=== PATIENT | male | born 1955 | race Caucasian/White ===

== ENCOUNTER 2022-03-24 10:12 | Observation (INO) | payer MEDICARE, SELFPAY ==
[2022-03-24 10:12] VITALS: BP 151/96; PULSE 72; RESP 16; TEMP 36.1; O2SAT 96; BMI 27.8
--- NOTE | 2022-03-24 10:27 | NURSING ---
CALLED [facility]KEN[facility] ROGERS, TALKED TO YANNA. SHE WILL PRINT OUT RESULTS OF VISIT FROM [facility] AND FAX THEM TO OUR ER
--- NOTE | 2022-03-24 10:31 | CT_ITS ---
HISTORY: pain, jaundice. TECHNIQUE: Helically acquired images were obtained of the abdomen and pelvis after the intravenous administration of 100mL Isovue-370. A radiation dose optimization technique was used for this scan. 423 images. COMPARISON: None. FINDINGS: LOWER CHEST: Lung bases clear. BOWEL: Mild hiatal hernia. Bowel nondilated. Appendix not visualized. Colonic diverticulosis without focal inflammatory change observed. PERITONEUM: No significant ascites. LIVER/SPLEEN/PANCREAS: No enhancing mass. Nonenlarged. GALLBLADDER/BILIARY TREE: Multiple gallstones in a distended gallbladder. KIDNEYS: No hydronephrosis. Septated 2.2 cm right upper and simple 1 cm lower pole cysts. ADRENAL GLANDS: No nodules. VESSELS: No abdominal aortic aneurysm. Mild atherosclerosis. PELVIC ORGANS: Prostate calcifications seen. ABDOMINAL WALL: Mild scrotal hydroceles. Fat-containing right inguinal hernia. BONES: Mild degenerative changes with chronic mild compression fractures of T12, L1, and L2. CT/Abdomen/Pelvis W IV Cont ONLY IMPRESSION: Cholelithiasis with gallbladder distention. Small right renal cysts. Mild hiatal hernia. Mild scrotal hydroceles. Electronically Signed: Anika Goodwin MD at 11:43 EST ,
--- NOTE | 2022-03-24 10:32 | EX.ED.DYSGE1 ---
HPI History of Present Illness Chief Complaint: General Illness Informant: patient and spouse/S.O. Narrative Narrative: Patient presents with nausea vomiting dehydration jaundiced and some abdominal discomfort. Patient states he has been having some nausea and vomiting for almost 2 weeks. He had a little bit of nonspecific nonlocalized abdominal discomfort. He was seen at another hospital on Friday. They did blood work and he recalls his bilirubin was 3.8. Because he feels slightly lightheaded when he gets up quickly, they did a CT of his head that showed no acute process. It sounds like there was no imaging of the abdomen done. He was feeling better after IV fluids and meds. But over the last 2 or so days he has not been able to control nausea vomiting again. He is not really eating at all. He is still making urine. He does state that his stools were light-colored. No blood. He tried to get a popsicle and this morning. It stayed down for about an hour before he threw up that liquid. His biggest complaint is that he feels very dehydrated. He does have an appointment with Dr. Smith tomorrow at 3 in the afternoon. Patient does not drink alcohol at all. He only occasionally takes Tylenol. He is overall quite healthy. He had what sounds like inguinal hernia repair years ago but no other abdominal surgery. Nothing is really making his symptoms better or worse. Meds helped a little bit but are no longer helping. [facility] Medical History GERD (gastroesophageal reflux disease) Home Medications omeprazole 40 mg capsule,delayed release mg 03/24/22 [History Last Taken Unknown] Allergy/AdvReac Type Severity Reaction Status Date / Time No Known Allergies Allergy Verified 03/24/22 10:15 Surgical History H/O cardiac radiofrequency ablation Social History Smoking Status: Never smoker ROS ROS ED Constitutional Constitutional ED: Denies chills or fever(s) Eyes Eyes: Denies change in vision ENT ENT ED: Denies rhinorrhea or sore throat Cardiovascular Cardiovascular: Denies chest pain or palpitations Respiratory/Chest Respiratory/Chest: Denies cough or dyspnea Gastrointestinal Gastrointestinal: Reports abdominal pain, nausea, vomiting and other Details: Patient states he has mild abdominal discomfort. But he states is not really pain at all. It is a constant feeling as though he is going to vomit. He cannot localize this to any one area. ; Denies constipation, diarrhea or melena Genitourinary Genitourinary ED: Reports other Details: Patient states his urine is still relatively normal. No noted darkening or foaming. ; Denies urinary frequency Musculoskeletal Musculoskeletal: Denies myalgias Integumentary Denies rash Neurologic Neurologic: Reports other Details: Patient states he feels mildly lightheaded if he gets up quickly. Its not true vertigo. It does not continue. He thinks this is likely related to not getting fluids in. It had resolved after he got IV fluids. ; Denies headache(s), paresthesias or weakness Endocrine Endocrinology: Denies polydipsia or polyuria Hematologic/Lymphatic Hematologic/Lymphatic: Denies easy bleeding or easy bruising Allergic/Immunologic Allergic/Immunologic ED: Denies urticaria EXAM Physical Exam Const Vital Signs: 03/24/22 10:12 03/24/22 10:43 03/24/22 13:07 Temperature 97.0 F L Temperature Source Temporal Pulse Rate 72 Respiratory Rate 16 18 Respiratory Effort Normal Non-Labored Blood Pressure 151/96 H Blood Pressure Mean 114 Pulse Ox 96 99 Oxygen Delivery Method Room Air Room Air 03/24/22 15:00 03/24/22 16:21 Temperature 99 F Temperature Source Temporal Pulse Rate 84 75 Respiratory Rate 18 18 Respiratory Effort Blood Pressure 139/85 H Blood Pressure Mean 103 Pulse Ox 96 99 Oxygen Delivery Method Room Air Room Air Positive well nourished and well developed General Appearance ED: well developed and NAD HEENT Reports dry mucous membranes Mouth ED: Yes dry mucous membranes Mouth: dry mucous membranes Eyes General Eye ED: Yes scleral icterus Neck supple and no JVD Chest Wall inspection of chest normal Resp normal respiratory effort and clear to auscultation bilaterally Effort and Inspection: Negative for pain with movement Cardio regular rate and regular rhythm GI normal to inspection, nondistended, normoactive bowel sounds GI Narrative: Bowel sounds are normal. Abdomen does not look distal and it. He does feel just a hint of discomfort with palpation of the right upper quadrant. But its not notably tender. There is certainly no rebound or guarding. Kuo sign is negative. Back/Spine no CVA tenderness Extremity normal to inspection General Extremety ED: Negative for edema or tenderness General Extremity: Negative for edema Psych mental status grossly normal Skin no rashes or lesions noted Skin Narrative: There is some icteric changes to his conjunctive a but I do not see generalized jaundiced. MDM MDM MDM Narrative Medical decision making narrative: CT and ultrasound are not showing signs of acute cholecystitis although there is cholelithiasis. His white count is normal. Hemoglobin is still high. This may be partially from dehydration and may be chronic. INR is normal. Electrolytes overall look normal. LFTs look good except for the high bilirubin at 4.2. This is mostly indirect bilirubin when we checked this. But he has no bruising. There is no sign of hemolysis. Urine is negative. LDH is normal but at high limit of normal. Reticulocyte count pending. Patient was still nauseated after Zofran. We have also given him IV fluids. He has had some dry heaves. We gave him some Phenergan. My concern is that this patient has lost about 15 or 16 pounds. He is still having nausea and vomiting despite good medication at home. He is not showing acute kidney injury now but he also got IV fluids just few days ago and today. We discussed options with him and he also discussed the case with the hospitalist. He will be brought in under observation status. Lab Data Attestation: I reviewed the patient's lab results. Labs: Laboratory Results - last 24 hr 03/24/22 03/24/22 03/24/22 10:40 10:40 10:40 WBC 8.9 RBC 6.36 H Hgb 18.8 H* Hct 52.7 MCV 82.9 MCH 29.6 MCHC 35.7 RDW Std Deviation 37.3 RDW Coeff of Inocente 12.3 Plt Count 216 MPV 11.6 Immature Gran % (Auto) 0.400 Neut % (Auto) 80.0 H Lymph % (Auto) 11.3 L [place] % (Auto) 7.4 Eos % (Auto) 0.7 Baso % (Auto) 0.2 Absolute Neuts (auto) 7.1 Absolute Lymphs (auto) 1.01 Nucleated RBC % 0 Diff Path Review May foll Retic Count Immature Retic Fraction Retic Hgb Equivalent PT 12.8 INR 1.0 Sodium 137 Potassium 3.7 Chloride 103 Carbon Dioxide 27.0 Anion Gap 7 BUN 11 Creatinine 0.94 Estim Creat Clear Calc 69.34 Est GFR (MDRD) Af Amer 102 Est GFR (MDRD) Non-Af 84 BUN/Creatinine Ratio 11.7 Glucose 114 H Calcium 9.6 Total Bilirubin 4.20 H Direct Bilirubin Indirect Bilirubin AST 16 ALT 26 Alkaline Phosphatase 93 Lactate Dehydrogenase Total Protein 7.5 Albumin 4.1 Globulin 3.4 Albumin/Globulin Ratio 1.2 Lipase 158 Urine Color Urine Clarity Urine pH Ur Specific [place] Urine Protein Urine Glucose (UA) Urine Ketones Urine Occult Blood Urine Nitrite Urine Bilirubin Urine Urobilinogen Ur Leukocyte Esterase Urine RBC Urine WBC Ur Squamous Epith Cells Urine Bacteria Urine Mucus 03/24/22 03/24/22 03/24/22 10:40 10:40 11:45 WBC RBC Hgb Hct MCV MCH MCHC RDW Std Deviation RDW Coeff of Inocente Plt Count MPV Immature Gran % (Auto) Neut % (Auto) Lymph % (Auto) [place] % (Auto) Eos % (Auto) Baso % (Auto) Absolute Neuts (auto) Absolute Lymphs (auto) Nucleated RBC % Diff Path Review Retic Count 0.90 Immature Retic Fraction 5.00 Retic Hgb Equivalent 34.3 PT INR Sodium Potassium Chloride Carbon Dioxide Anion Gap BUN Creatinine Estim Creat Clear Calc Est GFR (MDRD) Af Amer Est GFR (MDRD) Non-Af BUN/Creatinine Ratio Glucose Calcium Total Bilirubin 4.10 H Direct Bilirubin 0.53 H Indirect Bilirubin 3.60 H AST ALT Alkaline Phosphatase Lactate Dehydrogenase 229 Total Protein Albumin Globulin Albumin/Globulin Ratio Lipase Urine Color Straw Urine Clarity Clear Urine pH 8.0 Ur Specific [place] 1.010 Urine Protein Negative Urine Glucose (UA) Normal Urine Ketones Negative Urine Occult Blood Negative Urine Nitrite Negative Urine Bilirubin Negative Urine Urobilinogen Normal Ur Leukocyte Esterase Negative Urine RBC 0 SEEN Urine WBC 0 SEEN Ur Squamous Epith Cells 0 SEEN Urine Bacteria 0 SEEN Urine Mucus 0 SEEN Radiography Diagnostic Testing: Clinical Impression(s) from Imaging Studies Abdomen/Pelvis CT 03/24/22 10:31 IMPRESSION: Cholelithiasis with gallbladder distention. Small right renal cysts. Mild hiatal hernia. Mild scrotal hydroceles. Electronically Signed: Anika Goodwin MD at 11:43 EST Reading Location ID and State: [facility] / [place] Tel , Service support , Gallbladder Ultrasound 03/24/22 12:02 IMPRESSION: Cholelithiasis. Electronically Signed: Lázaro Bullock MD at 13:52 EST , CT shows some cholelithiasis but no acute process. I did ultrasound the gallbladder which also shows cholelithiasis but no acute process or inflammation. Discharge Plan Triage Chief Complaint: General Illness ED Provider: Maximino Mercer Dx/Rx/DC Orders Prescriptions: No Action omeprazole 40 mg Capsule,Delayed Release(Dr/Ec) Rx Instructions: EVERY OTHER DAY Primary Care Provider: Lencho Nicholas Referrals: Jorgito Cleary MD [Non-Staff] - Disposition Disposition: Acute Care [facility]
[2022-03-24] MEDS: Ondansetron 4 MG/2 ML Vial IV (10:47)
[2022-03-24] MEDS: 0.9% Normal Saline 1,000 ML 1000 ML IV (10:47)
[2022-03-24 10:48] LABS: Absolute Lymphocyte Count 1.01 X10^3/uL (0.83-4.51); Absolute Neutrophil Count 7.1 X10^3/uL (2.0-7.7); Basophil# 0.02 X10^3/uL; Basophil% 0.2 % (0-1); Eosinophil# 0.06 X10^3/uL; Eosinophils% 0.7 % (0-5); Hematocrit 52.7 % (40-54); Hemoglobin 18.8 g/dL (13.0-16.5); Lymphocyte # 1.01 X10^3/ul (0.83-4.51); Lymphocyte % 11.3 % (19-41); Mean Corp Hgb Conc 35.7 g/dL (32-36); Mean Corpuscular Hgb 29.6 pg (27.0-32.0); Mean Corpuscular Volume 82.9 fL (80-94); Mean Platelet Vol. 11.6 fl (6.2-12.0); Monocyte# 0.66 X10^3/uL; Monocyte% 7.4 % (0-10); NRBC Flagged by Analyzer 0 % (0-5); Neutrophil # 7.11 X10^3/uL (2.7-7.7); Platelet Count 216 K/mm3 (150-450); RBC Distribution Width CV 12.3 % (11.6-14.6); RBC Distribution Width SD 37.3 fl (35.1-43.9); Red Blood Count 6.36 M/mm3 (4.6-6.2); White Blood Count 8.9 K/mm3 (4.4-11.0)
[2022-03-24 10:57] LABS: Prothrombin Time (Protime)PT. 12.8 SECONDS (11.7-14.9)
[2022-03-24 11:05] LABS: ALB/GLOB Ratio 1.2 RATIO (0.9-2.4); AST(SGOT) 16 U/L (15-37); Alanine Aminotransfer ALT/SGPT 26 U/L (16-61); Albumin, Serum 4.1 g/dL (3.2-5.0); Alkaline Phosphatase 93 U/L (45-117); Anion Gap 7 (5-15); BUN 11 mg/dL (7-18); BUN/Creat Ratio 11.7 RATIO (10-20); Calcium,Total 9.6 mg/dL (8.5-10.1); Chloride 103 mmol/L (98-107); Creatinine, Serum 0.94 mg/dL (0.70-1.30); EST Glomerular Filtration Rate 84 mL/min (>60); Est Glom Filt Rate - Afr Amer 102 mL/min (>60); Estimated Creatinine Clearance 69.34 ml/min; Globulin 3.4 g/dL (2.2-4.2); Glucose 114 mg/dL (74-106); Lipase 158 U/L (73-393); Potassium 3.7 mmol/L (3.5-5.1); Protein, Total 7.5 g/dL (6.4-8.2); Sodium Level 137 mmol/L (136-145)
[2022-03-24 11:52] LABS: Bacteria 0 SEEN /hpf (None Seen); Mucous, Urine 0 SEEN /hpf (<or=2+); Red Blood Cells-Urine 0 SEEN /hpf (0-5); Squamous Epithelial Cells - UA 0 SEEN /hpf (0-5); White Blood Cells 0 SEEN /hpf (0-5)
[2022-03-24 11:54] LABS: Color, Urine Straw (Yellow); Glucose, Dipstick Normal (Normal); Ketone-Dipstick Negative (Negative); Leukocyte Esterase-Dipstick Negative /ul (Negative); Nitrite-Dipstick Negative (Negative); Occult Blood-Urine Negative /ul (Negative); Protein-Dipstick Negative (Negative); Urine Bilirubin Dipstick Negative (Negative); Urine Clarity Clear (Clear); Urine Urobilinogen Normal (Normal)
--- NOTE | 2022-03-24 12:02 | US_ITS ---
EXAM: US ABDOMEN LIMITED, RIGHT UPPER QUADRANT CLINICAL INDICATION: PAIN TECHNIQUE: Real-time ultrasound of the right upper quadrant with image documentation. This report was created using [employer] report generation technology. COMPARISON: None. FINDINGS: LIVER: Normal. There is normal echotexture. No focal hepatic lesion. No intrahepatic biliary ductal dilation. GALLBLADDER: Small stones noted along the neck of the gallbladder. No gallbladder wall thickening is demonstrated. No pericholecystic fluid. Negative sonographic Kuo''s sign. COMMON BILE DUCT: Unremarkable as visualized. The proximal common bile duct is within normal limits for the patient''s age. PANCREAS: Pancreas is obscured by overlying bowel gas. RIGHT KIDNEY: Normal. There is no hydronephrosis. No shadowing calculus. No focal lesion or perinephric collection is demonstrated. US/Gallbladder IMPRESSION: Cholelithiasis. Electronically Signed: Lázaro Bullock MD at 13:52 EST ,
[2022-03-24 13:07] VITALS: RESP 18; O2SAT 99
[2022-03-24 13:24] LABS: Platelet Count 197 K/mm3 (150-450); RET-HE 34.3 pg (30-35)
[2022-03-24 13:51] LABS: Bilirubin, Direct 0.53 mg/dL (0.00-0.30); LDH 229 U/L (87-241)
[2022-03-24] MEDS: proMETHazine 25 MG/ML Syringe 12.5 MG IM (14:08)
[2022-03-24 15:00] VITALS: PULSE 84; RESP 18; O2SAT 96
--- NOTE | 2022-03-24 16:04 | HP.PCM.HOS_ITS ---
HPI - General General Chief Complaint: N/V HPI Narrative TYREL HESS, is a 67 M who presents nausea and vomiting. Has been ongoing for a few weeks and occurs when he eats but is not consistent. Is able to take liquids. During this time he is lost over 10 pounds. Additionally he has been having a headache with that. States that headache is better after he vomits. Was seen at [facility] where he had a head CT that was apparently negative. Was sent home. Presents here just as he is not feeling any better. He was noted to have total bilirubin of 4.1 and direct bilirubin of 0.53 and indirect 3.6. Patient had a history of that couple years ago and was told that he had sludge in his gallbladder at that time. Patient has not noticed any jaundice. Patient had a CAT scan of his abdomen showed cholelithiasis with gallbladder distention. And ultrasound that showed cholelithiasis. [facility] Medical History GERD (gastroesophageal reflux disease) Home Medications omeprazole 40 mg capsule,delayed release mg 03/24/22 [History Last Taken Unknown] Allergy/AdvReac Type Severity Reaction Status Date / Time No Known Allergies Allergy Verified 03/24/22 10:15 Surgical History H/O cardiac radiofrequency ablation Social History Smoking Status: Never smoker ROS ROS Narrative He denies any discolored urine. All review of systems were negative except as mentioned above in the history of present illness and the other review of systems. Vital Signs Vital Signs Vital Signs: 03/24/22 10:12 03/24/22 10:43 03/24/22 13:07 Temperature 36.1 C L Temperature Source Temporal Pulse Rate 72 Respiratory Rate 16 18 Respiratory Effort Normal Non-Labored Blood Pressure 151/96 H Blood Pressure Mean 114 Pulse Ox 96 99 Oxygen Delivery Method Room Air Room Air 03/24/22 15:00 Temperature Temperature Source Pulse Rate 84 Respiratory Rate 18 Respiratory Effort Blood Pressure Blood Pressure Mean Pulse Ox 96 Oxygen Delivery Method Room Air Weight Weight: 80.739 kg Body Mass Index (BMI) 27.8 Physical Exam Const alert and no apparent distress HEENT normocephalic and head/scalp atraumatic Eyes Eyes Narrative: No icterus Neck no lymphadenopathy Neck Narrative: No meningismus Resp normal respiratory effort, no retractions, no use of accessory muscles and clear to auscultation bilaterally Cardio regular rate, regular rhythm, S1 normal heart sound and S2 normal heart sound GI normal to inspection, nondistended, normoactive bowel sounds and soft to palpation GI Narrative: Negative Kuo sign Extremity normal to inspection Neuro oriented x3 and moves all extremities Sensorium / Orientation: awake and alert Psych affect normal Results Lab / Micro Data Attestation: I reviewed the patient's lab results. Result Diagrams: 03/24/22 10:40 03/24/22 10:40 Labs: Laboratory Results - last 24 hr 03/24/22 10:40: WBC 8.9, RBC 6.36 H, Hgb 18.8 H*, Hct 52.7, MCV 82.9, MCH 29.6, MCHC 35.7, RDW Std Deviation 37.3, RDW Coeff of Inocente 12.3, Plt Count 216, MPV 11.6, Immature Gran % (Auto) 0.400, Neut % (Auto) 80.0 H, Lymph % (Auto) 11.3 L, [place] % (Auto) 7.4, Eos % (Auto) 0.7, Baso % (Auto) 0.2, Absolute Neuts (auto) 7.1, Absolute Lymphs (auto) 1.01, Nucleated RBC % 0, Diff Path Review August03/24/22 10:40: PT 12.8, INR 1.0 03/24/22 10:40: Sodium 137, Potassium 3.7, Chloride 103, Carbon Dioxide 27.0, Anion Gap 7, BUN 11, Creatinine 0.94, Estim Creat Clear Calc 69.34, Est GFR (MDRD) Af Amer 102, Est GFR (MDRD) Non-Af 84, BUN/Creatinine Ratio 11.7, Glucose 114 H, Calcium 9.6, Total Bilirubin 4.20 H, AST 16, ALT 26, Alkaline Phosphatase 93, Total Protein 7.5, Albumin 4.1, Globulin 3.4, Albumin/Globulin Ratio 1.2, Lipase 158 03/24/22 10:40: Total Bilirubin 4.10 H, Direct Bilirubin 0.53 H, Indirect Bilirubin 3.60 H, Lactate Dehydrogenase 229 03/24/22 10:40: Retic Count 0.90, Immature Retic Fraction 5.00, Retic Hgb Equivalent 34.3 03/24/22 11:45: Urine Color Straw, Urine Clarity Clear, Urine pH 8.0, Ur Specific [place] 1.010, Urine Protein Negative, Urine Glucose (UA) Normal, Urine Ketones Negative, Urine Occult Blood Negative, Urine Nitrite Negative, Urine Bilirubin Negative, Urine Urobilinogen Normal, Ur Leukocyte Esterase Negative, Urine RBC 0 SEEN, Urine WBC 0 SEEN, Ur Squamous Epith Cells 0 SEEN, Urine Bacteria 0 SEEN, Urine Mucus 0 SEEN Radiology Impression Abdomen/Pelvis CT 03/24/22 10:31 IMPRESSION: Cholelithiasis with gallbladder distention. Small right renal cysts. Mild hiatal hernia. Mild scrotal hydroceles. Electronically Signed: Anika Goodwin MD at 11:43 EST , Gallbladder Ultrasound 03/24/22 12:02 IMPRESSION: Cholelithiasis. Electronically Signed: Lázaro Bullock MD at 13:52 EST , Assessment & Plan Assessment/Plan (1) Elevated bilirubin: PLAN: Unclear etiology. Will consult GI for further evaluation Does have cholelithiasis but no evidence of cholecystitis (2) Nausea and vomiting: PLAN: Unclear etiology Could be GI related versus migraine Continue with Zofran as needed Changes PPI IV (3) Migraine: PLAN: Unclear if patient is having a migraine. Patient does have chronic photophobia that been unchanged recently. Will give the patient a dose of IV dexamethasone 10 mg And I will start him on scheduled dosing of Compazine and Benadryl if this is a migraine hopefully breaking the cycle. I will do this for 3 doses. We will request records from [facility] for his CAT scan to ensure there is no other etiology for his headaches. PLAN: Plan VTE prophylaxis: Not indicated given current observation status Disposition: Patient being brought under observation status. Patient is family are made aware that that may ultimately lead to a higher co-pay after discharge. He is agreeable to being brought under observation status. Charges/Coding Visit Charges OBSV E&M: 19000 Initial observation care L3
[2022-03-24 16:21] VITALS: BP 139/85; PULSE 75; RESP 18; TEMP 37.2; O2SAT 99
--- NOTE | 2022-03-24 16:24 | NURSING ---
MED SURG OBS AILEEN NAUSEA, VOMITING, ELEVATED BILIRUBIN, FAILED OUTPATIENT TREATMENT
[2022-03-24 17:19] VITALS: BMI 27.1
[2022-03-24] MEDS: DiphenhydrAMINE 50 MG/ML Syringe 25 MG IV ×2 (17:41→22:23)
[2022-03-24] MEDS: proCHLORPERazine 10 MG/2 ML Vial 5 MG IV ×2 (17:41→22:22)
[2022-03-24] MEDS: dexAMETHasone 10 MG/ML Vial IV (17:42)
[2022-03-24] MEDS: 0.9% Normal Saline 1,000 ML 150 ML IV (17:42)
[2022-03-24 17:56] VITALS: BP 132/70; PULSE 85; RESP 18; TEMP 36.3; O2SAT 98
[2022-03-24 20:52] VITALS: BP 133/84; PULSE 78; RESP 16; TEMP 37; O2SAT 96
[2022-03-25] MEDS: 0.9% Normal Saline 1,000 ML 150 ML IV ×3 (00:43→12:08)
[2022-03-25 02:52] VITALS: BP 115/78; PULSE 62; RESP 16; TEMP 36.7; O2SAT 96
[2022-03-25] MEDS: proCHLORPERazine 10 MG/2 ML Vial 5 MG IV (05:11)
[2022-03-25] MEDS: DiphenhydrAMINE 50 MG/ML Syringe 25 MG IV (05:12)
[2022-03-25 05:34] LABS: Absolute Neutrophil Count 6.4 X10^3/uL (2.0-7.7); Hematocrit 49.8 % (40-54); Hemoglobin 17.6 g/dL (13.0-16.5); Lymphocyte % 8.5 % (19-41); Mean Corp Hgb Conc 35.3 g/dL (32-36); Mean Corpuscular Hgb 29.3 pg (27.0-32.0); Mean Platelet Vol. 11.1 fl (6.2-12.0); Monocyte# 0.06 X10^3/uL; Monocyte% 0.8 % (0-10); NRBC Flagged by Analyzer 0 % (0-5); Neutrophil # 6.38 X10^3/uL (2.7-7.7); Neutrophil % 90.1 % (47-70); POSITIVE DIFFERENTIAL YES; Platelet Count 211 K/mm3 (150-450); RBC Distribution Width CV 12.3 % (11.6-14.6); RBC Distribution Width SD 37.5 fl (35.1-43.9); White Blood Count 7.1 K/mm3 (4.4-11.0)
[2022-03-25 05:37] LABS: Differential Indicated SCAN CRITERIA MET
[2022-03-25 05:58] LABS: ALB/GLOB Ratio 1.2 RATIO (0.9-2.4); AST(SGOT) 10 U/L (15-37); Alanine Aminotransfer ALT/SGPT 25 U/L (16-61); Albumin, Serum 3.5 g/dL (3.2-5.0); Alkaline Phosphatase 85 U/L (45-117); Anion Gap 8 (5-15); BUN 15 mg/dL (7-18); BUN/Creat Ratio 17.4 RATIO (10-20); Calcium,Total 8.9 mg/dL (8.5-10.1); Chloride 103 mmol/L (98-107); Creatinine, Serum 0.86 mg/dL (0.70-1.30); EST Glomerular Filtration Rate 94 mL/min (>60); Est Glom Filt Rate - Afr Amer 113 mL/min (>60); Estimated Creatinine Clearance 75.79 ml/min; Globulin 2.8 g/dL (2.2-4.2); Glucose 137 mg/dL (74-106); Potassium 3.8 mmol/L (3.5-5.1); Protein, Total 6.3 g/dL (6.4-8.2); Sodium Level 136 mmol/L (136-145)
[2022-03-25 08:02] VITALS: BP 122/72; PULSE 73; RESP 16; TEMP 36.7; O2SAT 99
--- NOTE | 2022-03-25 08:12 | DS.PCM_ITS ---
Providers Date of Admission: 03/24/22 Date of Discharge: 03/25/22 Primary Care Physician: Dr. Lencho Nicholas, DO Consultations 03/24/22 17:12 Consult: Gastroenterology Routine Consulting Provider: JanelleDavid Reason for Consult: N/V EMERGENT Consult: No MD Notified: Yes Date Notified: 03/24/22 Time Notified: 16:01 Method of Notification: Text Reason For Visit: N/V ELEVATED BILLIRUBIN Diagnosis Discharge Diagnosis (1) Elevated bilirubin: Status: Acute Code(s): R17 - Unspecified jaundice (2) Nausea and vomiting: Status: Acute Code(s): R11.2 - Nausea with vomiting, unspecified (3) Migraine: Status: Acute Code(s): G43.909 - Migraine, unspecified, not intractable, without status migrainosus Medications at Discharge Home Medications omeprazole 40 mg capsule,delayed release 20 mg PO QODAY stomach\ 03/24/22 hyoscyamine sulfate 0.125 mg disintegrating tablet 0.125 mg PO BID-QID PRN dyspepsia #30 tabs 03/25/22 Hospital Course Summary of Care Provided Minutes Spent on Discharge: 35 Hospital Course: Patient is a 67-year-old male who presented with headache with nausea and vomiting 1. Acute migrainous attack ? Patient was admitted to regular nursing floor for symptomatic management did respond to therapy 2. Hyperbilirubinemia ? With high suspicion for Gilbert's. Patient to follow-up with GI as outpatient 3. GERD ? Patient on PPI Physical Exam Narrative GENERAL: cooperative HEENT: Atraumatic; normocephalic EYES; Anicteric, Normal Conjunctiva NECK; supple, normal thyroid, RESPIRATORY: Diminished to auscultation CARDIOVASCULAR: Regular S1 S2, GI: soft, normoactive bowel sounds, : No Renal angle tenderness; EXTREMITIES: No edema, no clubbing, MUSCULOSKELETAL: no muscle wasting NEURO: Awake; no lateralizing signs. SKIN: No Rash PSYCH; Flat affect Weight / BMI Weight Weight: 78.471 kg Body Mass Index (BMI) 27.1 ABG / Lab / Microbiology Data Result Diagrams: 03/25/22 05:15 03/25/22 05:15 Laboratory: Laboratory Results - last 24 hr 03/24/22 10:40: WBC 8.9, RBC 6.36 H, Hgb 18.8 H*, Hct 52.7, MCV 82.9, MCH 29.6, MCHC 35.7, RDW Std Deviation 37.3, RDW Coeff of Inocente 12.3, Plt Count 216, MPV 11.6, Immature Gran % (Auto) 0.400, Neut % (Auto) 80.0 H, Lymph % (Auto) 11.3 L, [place] % (Auto) 7.4, Eos % (Auto) 0.7, Baso % (Auto) 0.2, Absolute Neuts (auto) 7.1, Absolute Lymphs (auto) 1.01, Nucleated RBC % 0, Diff Path Review August03/24/22 10:40: PT 12.8, INR 1.0 03/24/22 10:40: Sodium 137, Potassium 3.7, Chloride 103, Carbon Dioxide 27.0, Anion Gap 7, BUN 11, Creatinine 0.94, Estim Creat Clear Calc 69.34, Est GFR (MDRD) Af Amer 102, Est GFR (MDRD) Non-Af 84, BUN/Creatinine Ratio 11.7, Glucose 114 H, Calcium 9.6, Total Bilirubin 4.20 H, AST 16, ALT 26, Alkaline Phosphatase 93, Total Protein 7.5, Albumin 4.1, Globulin 3.4, Albumin/Globulin Ratio 1.2, Lipase 158 03/24/22 10:40: Total Bilirubin 4.10 H, Direct Bilirubin 0.53 H, Indirect Bilirubin 3.60 H, Lactate Dehydrogenase 229 03/24/22 10:40: Retic Count 0.90, Immature Retic Fraction 5.00, Retic Hgb Equivalent 34.3 03/24/22 11:45: Urine Color Straw, Urine Clarity Clear, Urine pH 8.0, Ur Specific [place] 1.010, Urine Protein Negative, Urine Glucose (UA) Normal, Urine Ketones Negative, Urine Occult Blood Negative, Urine Nitrite Negative, Urine Bilirubin Negative, Urine Urobilinogen Normal, Ur Leukocyte Esterase Negative, Urine RBC 0 SEEN, Urine WBC 0 SEEN, Ur Squamous Epith Cells 0 SEEN, Urine Bacteria 0 SEEN, Urine Mucus 0 SEEN 03/25/22 05:15: WBC 7.1, RBC 6.00, Hgb 17.6 H, Hct 49.8, MCV 83.0, MCH 29.3, MCHC 35.3, RDW Std Deviation 37.5, RDW Coeff of Inocente 12.3, Plt Count 211, MPV 11.1, Immature Gran % (Auto) 0.600, Neut % (Auto) 90.1 H, Lymph % (Auto) 8.5 L, [place] % (Auto) 0.8, Eos % (Auto) 0.0, Baso % (Auto) 0.0, Absolute Neuts (auto) 6.4, Absolute Lymphs (auto) 0.60 L, Nucleated RBC % 0 03/25/22 05:15: Sodium 136, Potassium 3.8, Chloride 103, Carbon Dioxide 25.0, Anion Gap 8, BUN 15, Creatinine 0.86, Estim Creat Clear Calc 75.79, Est GFR (MDRD) Af Amer 113, Est GFR (MDRD) Non-Af 94, BUN/Creatinine Ratio 17.4, Glucose 137 H, Calcium 8.9, Total Bilirubin 3.50 H, AST 10 L, ALT 25, Alkaline Phosphatase 85, Total Protein 6.3 L, Albumin 3.5, Globulin 2.8, Albumin/Globulin Ratio 1.2 Radiography Diagnostic Testing: Radiology Impression Abdomen/Pelvis CT 03/24/22 10:31 IMPRESSION: Cholelithiasis with gallbladder distention. Small right renal cysts. Mild hiatal hernia. Mild scrotal hydroceles. Electronically Signed: Anika Goodwin MD at 11:43 EST , Gallbladder Ultrasound 03/24/22 12:02 IMPRESSION: Cholelithiasis. Electronically Signed: Lázaro Bullock MD at 13:52 EST , D/C Instructions Discharge Diet: No restrictions Discharge Activity: Return to Normal Activity Call your doctor if you observe: Fever of 101 or Higher, Shortness of breath, Fainting spells and Chest pain Meaningful Use Info Meaningful Use Diagnoses (Choose all that apply): None applicable Discharge Plan Admission Admit Date/Time: 12/11/22 15:39 Attending Provider: Miguelito Kenny Primary Care Provider: Lencho Nicholas Consulting Providers: David Luis ; Shen Campbell Discharge Orders/Prescriptions Prescriptions: Continued omeprazole 40 mg Capsule,Delayed Release(Dr/Ec) 20 mg PO QODAY Rx Instructions: EVERY OTHER DAY hyoscyamine sulfate 0.125 mg tablet,disintegrating 0.125 mg PO BID-QID PRN (Reason: dyspepsia) Qty: 30 1RF Referrals / Follow Up: Jorgito Cleary MD [Non-Staff] - David Luis DO [Med Staff - Active Staff] - 04/07/22 10:45 am () Lencho Nicholas DO [Primary Care Provider] - Disposition Disposition (needs filled in before D/C Order can be placed): Home, Self Care Charges/Coding Visit Charges OBSV E&M: 29429 Observation care discharge
[2022-03-25 14:54] LABS: Erythrocyte Sedimentation Rate 3 mm/hr (0-20)
[2022-03-25 15:01] LABS: Amylase 24 U/L (25-115); CRP, High Sensitivity Cardiac 0.57 mg/L; Lipase 66 U/L (73-393)
--- NOTE | 2022-03-25 15:51 | CASEMGMT ---
ZACHERY CM in to discuss SOTO form with patient. RN CM explained SOTO form, patient voiced understanding. Pt signed form and filed in chart. Pt provided with a copy of signed SOTO form. Patient had no further questions or concerns at this time.
--- NOTE | 2022-03-25 16:43 | EX.PCM.CON.G ---
HPI Consult Data Date of Consult: 03/25/22 HPI Narrative Reason for Consultation: abdominal pain HPI Narrative: TYREL HESS, is a 67 M who presents with nausea vomiting dehydration jaundiced and some abdominal discomfort. Patient states he has been having some nausea and vomiting for almost 2 weeks.? He had a little bit of nonspecific nonlocalized abdominal discomfort.? He was seen at another hospital on Friday.? They did blood work and he recalls his bilirubin was 3.8.? Because he feels slightly lightheaded when he gets up quickly, they did a CT of his head that showed no acute process.? It sounds like there was no imaging of the abdomen done.? He was feeling better after IV fluids and meds.? But over the last 2 or so days he has not been able to control nausea vomiting again.? He is not really eating at all.? He is still making urine.? He does state that his stools were light-colored.? No blood.? He tried to get a popsicle and this morning.? It stayed down for about an hour before he threw up that liquid.? His biggest complaint is that he feels very dehydrated.? Patient does not drink alcohol at all.? He only occasionally takes Tylenol.? He is overall quite healthy.? He had what sounds like inguinal hernia repair years ago but no other abdominal surgery.? Nothing is really making his symptoms better or worse.? Meds helped a little bit but are no longer helping. He had a CT scan of the abdomen that did not show any signs of choledocholithiasis, cholecystitis, pancreatitis, bowel obstruction or inflammation in the gastrointestinal tract. He has been taking anti Nausea medicines and PPI therapy. Feeling a lot better and is tolerating diet at this time. [facility] Medical History GERD (gastroesophageal reflux disease) Home Medications omeprazole 40 mg capsule,delayed release 20 mg PO QODAY stomach\ 03/24/22 [History Last Taken 03/23/22] hyoscyamine sulfate 0.125 mg disintegrating tablet 0.125 mg PO BID-QID PRN dyspepsia #30 tabs 03/25/22 [Rx Last Taken Unknown] Allergy/AdvReac Type Severity Reaction Status Date / Time No Known Allergies Allergy Verified 03/24/22 10:15 Surgical History H/O cardiac radiofrequency ablation Social History Smoking Status: Never smoker ROS ROS Narrative He denies any discolored urine. All review of systems were negative except as mentioned above in the history of present illness and the other review of systems. Physical Exam Narrative GENERAL: cooperative HEENT: Atraumatic; normocephalic EYES; Anicteric, Normal Conjunctiva NECK; supple, normal thyroid, RESPIRATORY: Diminished to auscultation CARDIOVASCULAR: Regular S1 S2, GI: soft, normoactive bowel sounds, : No Renal angle tenderness; EXTREMITIES: No edema, no clubbing, MUSCULOSKELETAL: no muscle wasting NEURO: Awake; no lateralizing signs. SKIN: No Rash PSYCH; Flat affect Lab / Micro Data Result Diagrams: 03/25/22 05:15 03/25/22 05:15 Labs: Laboratory Results - last 24 hr 03/25/22 05:15: WBC 7.1, RBC 6.00, Hgb 17.6 H, Hct 49.8, MCV 83.0, MCH 29.3, MCHC 35.3, RDW Std Deviation 37.5, RDW Coeff of Inocente 12.3, Plt Count 211, MPV 11.1, Immature Gran % (Auto) 0.600, Neut % (Auto) 90.1 H, Lymph % (Auto) 8.5 L, [facility] % (Auto) 0.8, Eos % (Auto) 0.0, Baso % (Auto) 0.0, Absolute Neuts (auto) 6.4, Absolute Lymphs (auto) 0.60 L, Nucleated RBC % 0 03/25/22 05:15: Sodium 136, Potassium 3.8, Chloride 103, Carbon Dioxide 25.0, Anion Gap 8, BUN 15, Creatinine 0.86, Estim Creat Clear Calc 75.79, Est GFR (MDRD) Af Amer 113, Est GFR (MDRD) Non-Af 94, BUN/Creatinine Ratio 17.4, Glucose 137 H, Calcium 8.9, Total Bilirubin 3.50 H, AST 10 L, ALT 25, Alkaline Phosphatase 85, Total Protein 6.3 L, Albumin 3.5, Globulin 2.8, Albumin/Globulin Ratio 1.2 03/25/22 05:15: ESR 3 03/25/22 05:15: C-React Prot High Sens 0.57, Amylase 24 L, Lipase 66 L Assessment & Plan Assessment/Plan (1) Elevated bilirubin: PLAN: 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 He has no consequences from his bilirubin increasing. This is from a lack of glucuronyl transferase enzyme activity. This can elevate in times of stress, fasting and infection. (2) Nausea and vomiting: PLAN: He will get a gastric emptying study, HIDA scan with as needed hyoscyamine. Charges/Coding Visit Charges Inpatient E&M: 83982 Init Hosp L3
[2022-03-26 06:07] LABS: HEPATITIS B SURFACE AG Negative (Negative); Hep C Antibodies <0.1 s/co ratio (0.0-0.9); Hepatitis A IgM Antibody Negative (Negative); Hepatitis B Core AB IgM Negative (Negative)
[2022-03-26 12:38] LABS: Pathologist Review Reviewed
[2022-03-26 16:40] LABS: Haptoglobin 221 mg/dL (32-363)
[2022-03-27 16:09] LABS: Anti-Centromere B Ab <0.2 AI (0.0-0.9); Anti-Chromatin <0.2 AI (0.0-0.9); Anti-Jo <0.2 AI (0.0-0.9); Anti-Scleroderma-70 AB <0.2 AI (0.0-0.9); RNP Ab <0.2 AI (0.0-0.9); SJOGREN'S Anti-SS-A test < 0.2 AI (0.0-0.9); SJOGREN'S Anti-SS-B test < 0.2 AI (0.0-0.9); Smith Ab <0.2 AI (0.0-0.9)
[2022-03-27 17:07] LABS: Endomysial Antibody IgA Negative (Negative)
[2022-03-27 22:08] LABS: Deamidated Gliadin IgA 2 units (0-19); Deamidated Gliadin IgG 2 units (0-19); Immunoglobulin A 100 mg/dL (61-437); t-Transglutaminase IgA <2 U/mL (0-3)
[2022-03-27 22:10] LABS: Anti-dsDNA Ab <1 IU/mL (0-9)
[2022-03-29 08:09] LABS: Albumin 3.4 g/dL (2.9-4.4); Alpha-1-Globulins 0.2 g/dL (0.0-0.4); Alpha-2-Globulins 0.6 g/dL (0.4-1.0); Cytoplasmic Ab (C-ANCA) <1:20 titer (Neg:<1:20); Gamma Globulin 0.6 g/dL (0.4-1.8); Immunoglobulin A 99 mg/dL (61-437); Immunoglobulin E 3 IU/mL (6-495); Immunoglobulin G 653 mg/dL (603-1613); Immunoglobulin M 129 mg/dL (20-172); PROEL- TOTAL PROTEIN 5.7 g/dL (6.0-8.5)
[2022-03-31 15:38] LABS: Perinuclear Ab (P-ANCA) <1:20 titer (Neg:<1:20)
== END 2022-03-25 16:30 | disposition home or self-care (01) ==
LOC: ED 11:30 → MS3 16:53
PROVIDERS: Internal Medicine Gastroenterology; Emergency Provider Emergency Medicine; Visit Provider Internal Medicine
DX: R17 Unspecified jaundice (principal); G43.909 Migraine, unspecified, not intractable, without status migrainosus; K21.9 Gastro-esophageal reflux disease without esophagitis; E86.0 Dehydration; R11.2 Nausea with vomiting, unspecified; Z79.899 Other long term (current) drug therapy
CPT/HCPCS: 36415; 74177; 76705; 80053; 80074; 81001; 82150; 82247; 82248; 82784; 82785; 83010; 83516; 83615; 83690; 84165; 85025; 85045; 85610; 85652; 86141; 86225; 86235; 86255; 86256; 86334; 96361; 96365; 96375; 96376; 99218; 99284; J7030; Q9967; A4216; G0378; J2405

== ENCOUNTER → 2022-03-29 | Outpatient (CLI) | payer MEDICARE, SELFPAY ==
--- NOTE | 2022-03-29 10:16 | NM_ITS ---
CLINICAL: 67-year-old male with history of clinical gastroparesis. SEMI-SOLID PHASE 99m Tc SULFUR COLLOID GASTRIC EMPTYING STUDY COMPARISON: CT of the abdomen-pelvis, abdominal ultrasound reports 03/24/2022 FINDINGS: The patient was administered 1.0 mCi of 99m Tc sulfur colloid mixed with oatmeal and consumed per os. Image acquisitions in the anterior-posterior projections were obtained for 60 minutes. There is prompt visualization of the stomach. There is no gastroesophageal reflux identified. First order kinetics are maintained throughout the duration of the acquisitions. The T ? linear fit was calculated to be 88.57 minutes, (Normal: 12-56 minutes). NM/Gastric Emptying Study IMPRESSION: 1. ABNORMAL 99m Tc sulfur colloid semi-solid phase (oatmeal) gastric emptying imaging examination. A. There is delayed semi-solid phase gastric emptying compared to normal controls with demonstrated first order kinetics throughout all components of the examination. (Rajinder rizvi al, J Nucl Med Tech 38: 186, 2010). Electronically Signed: Sherman Aragon, at 10:47 EST ,
== END | disposition home or self-care (01) ==
LOC: NM 10:14
PROVIDERS: Referring Provider Internal Medicine Gastroenterology; Visit Provider Internal Medicine Gastroenterology
DX: R11.2 Nausea with vomiting, unspecified (principal)
CPT/HCPCS: 78264; A9541

== ENCOUNTER → 2022-04-19 | Outpatient (CLI) | payer MEDICARE, SELFPAY ==
--- NOTE | 2022-04-19 08:15 | RAD_ITS ---
EXAMINATION: Air contrast UPPER GI SERIES INDICATION: Male, 67 years nausea. Weight loss and loss of appetite. FLUOROSCOPY TIME (if supplied): (0:49) minutes/seconds. 18 images were obtained. TECHNIQUE: Radiographic and fluoroscopic images of the distal esophagus, stomach, and proximal small intestine were obtained following the oral ingestion of barium. COMPARISON: None. FINDINGS: There is no evidence for organomegaly, abnormal calcifications, or abnormal bowel gas pattern. The psoas margins and flank stripes are normal. The visualized osseous structures are normal. The mucosa of the esophagus, stomach and duodenum is normal in appearance without evidence for stricture, ulceration, mass or diverticulum. Moderate sized hiatal hernia with gastroesophageal reflux. The remainder of the stomach and duodenum is unremarkable. RAD/Upper GI Dual Contrast IMPRESSION: Moderate-sized hiatal hernia with gastroesophageal reflux. Electronically Signed: Kingston Poole MD at 9:12 [facility] ,
== END | disposition home or self-care (01) ==
PROVIDERS: Visit Provider Family Medicine
DX: K21.9 Gastro-esophageal reflux disease without esophagitis (principal); R11.2 Nausea with vomiting, unspecified
CPT/HCPCS: 74246